=== PATIENT | female | born 1995 | race Caucasian/White ===

== ENCOUNTER 2017-08-09 18:22 | Emergency (ER) | payer SELFPAY ==
[~2017-08-09] VITALS: Ht 162.6 cm; Wt 111.1 kg
[2017-08-09] MEDS ORDERED: KETOROLAC 30 MG/ML VIAL IVP ONE (20:30)
[2017-08-09] MEDS ORDERED: ONDANSETRON 4 MG/2 ML (SDV) Z0FRAN IVP ONE (20:30)
[2017-08-09 20:35] LABS: BILIRUBIN,URINE NEGATIVE (NEGATIVE); CLARITY,URINE SLIGHTLY CLOUDY; COLOR,URINE YELLOW; GLUCOSE, URINE (UA) NEGATIVE (NEGATIVE); KETONES,URINE NEGATIVE (NEGATIVE); LEUKOCYTE ESTERASE ,URINE NEGATIVE (NEGATIVE); NITRITE,URINE NEGATIVE (NEGATIVE); PH,URINE 5 (5-9); PROTEIN,URINE NEGATIVE (NEGATIVE); UROBILINOGEN,URINE NORMAL (NORMAL)
--- NOTE | 2017-08-09 20:36 | ED Abdominal Pain ---
General Chief Complaint: Abdominal/GI Problems Stated Complaint: LOWER PELVIC PAIN,NASUEA Nursing Triage Note: PT PRESENTS TO ER WITH COMPLAINT OF PELVIC PAIN. STATES IT IS A SHARP BURNING PAIN. ALSO COMPLAINING OF NAUSEA. STATES LMP 07/23/17. Sepsis Screen: No Definite Risk Source of Information: Patient Exam Limitations: No Limitations History of Present Illness Date Seen by Provider: Aug 09, 2017 Time Seen by Provider: 20:22 Initial Comments The patient was sensitive to ER by private conveyance with a chief complaint she is having some right lower inguinal abdominal pain. She has had a history of a 3 years ago. She is not had her appendix or gallbladder out. She' s having no fevers chills but she is having some nausea without vomiting. This pain started sometime yesterday has been constant and progressively getting worse. Moving or walking makes it worse. Having a bowel movement or urinating does not seem to affect it. She's not having any constipation or diarrhea. She denies any dysuria or discharge. She is not sexually active. She does not use any control. She's not noticing any rash or skin changes. Last menstrual period was July 23 for about one day. She says it's unusual for her; she is normally regular every month. She has used Motrin which did not help much with her pain. She has used heat and ice which she says made her pain worse. She denies a history of kidney stones. Allergies and Home Medications Allergies Coded Allergies: Influenza Virus Vaccines (Verified Allergy, Unknown, 08/09/17) Home Medications No Active Prescriptions or Reported Meds Patient Home Medication List Home Medication List Reviewed: Yes Review of Systems Constitutional: No chills, No diaphoresis, No fever, No malaise EENTM: No Blurred Vision, No Double Vision Respiratory: Denies Cough, Denies Shortness of Air Cardiovascular: Denies Chest Pain, Denies Palpitations, Denies Syncope Gastrointestinal: Denies Abdomen Distended; Abdominal Pain; Denies Constipated , Denies Diarrhea; Nausea Genitourinary: Denies Burning, Denies Discharge Musculoskeletal: No back pain, No joint pain Skin: No pruritus, No rash Past Qclgixx-Gqbjos-Dcrpiu Hx Patient Social History Alcohol Use: Denies Use Recreational Drug Use: No Smoking Status: Never a Smoker Recent Foreign Travel: No Contact w/Someone Who Travel: No Recent Infectious Disease Expo: No Recent Hopitalizations: No Immunizations Up To Date Tetanus Booster (TDap): Unknown PED Vaccines UTD: Yes Seasonal Allergies Seasonal Allergies: No Past Medical History Surgeries: Yes Section Respiratory: No Cardiac: No Neurological: No Genitourinary: No Gastrointestinal: No Musculoskeletal: No Endocrine: No HEENT: No Cancer: No Psychosocial: No Integumentary: No Blood Disorders: No Physical Exam Vital Signs Vital Signs - First Documented 08/09/17 19:42 Temp 98.1 Pulse 81 Resp 18 B/P (MAP) 137/100 (112) Pulse Ox 96 O2 Delivery Room Air Capillary Refill : Less Than 3 Seconds General Appearance: WD/WN, mild distress HEENT: PERRL/EOMI, TMs normal, pharynx normal Neck: full range of motion, normal inspection Respiratory: lungs clear, normal breath sounds, no respiratory distress, no accessory muscle use Cardiovascular: normal peripheral pulses, regular rate, rhythm Peripheral Pulses: 2+ Radial Pulses (R), 2+ Radial Pulses (L) Gastrointestinal: soft, no organomegaly, abnormal bowel sounds (hypoactive); No rebound; tenderness (right lower quadrant), other (negative for psoas, Rovsing or other mesenteric signs) Extremities: no pedal edema, no calf tenderness, normal capillary refill Back: normal inspection, no CVA tenderness Neurologic/Psychiatric: alert, normal mood/affect, oriented x 3 Skin: damp, other (odor of yeast in the pannus) Progress/Results/Core Measures Results/Orders Lab Results Laboratory Tests Test 08/09/17 19:40 08/09/17 20:40 Range/Units Urine Color YELLOW Urine Clarity SLIGHTLY CLOUDY Urine pH 5 5-9 Urine Specific [place] 1.025 H 1.016-1.022 Urine Protein NEGATIVE NEGATIVE Urine Glucose (UA) NEGATIVE NEGATIVE Urine Ketones NEGATIVE NEGATIVE Urine Nitrite NEGATIVE NEGATIVE Urine Bilirubin NEGATIVE NEGATIVE Urine Urobilinogen NORMAL NORMAL MG/DL Urine Leukocyte Esterase NEGATIVE NEGATIVE Urine RBC (Auto) NEGATIVE NEGATIVE Urine RBC NONE /HPF Urine WBC NONE /HPF Urine Squamous Epithelial Cells 10-25 H /HPF Urine Crystals NONE /LPF Urine Bacteria NONE /HPF Urine Casts NONE /LPF Urine Mucus MODERATE H /LPF Urine Culture Indicated NO Urine Test NEGATIVE NEGATIVE Urine Opiates Screen NEGATIVE NEGATIVE Urine Oxycodone Screen NEGATIVE NEGATIVE Urine Methadone Screen NEGATIVE NEGATIVE Urine Propoxyphene Screen NEGATIVE NEGATIVE Urine Barbiturates Screen NEGATIVE NEGATIVE Ur Tricyclic Antidepressants Screen NEGATIVE NEGATIVE Urine Phencyclidine Screen NEGATIVE NEGATIVE Urine Amphetamines Screen NEGATIVE NEGATIVE Urine Methamphetamines Screen NEGATIVE NEGATIVE Urine Benzodiazepines Screen NEGATIVE NEGATIVE Urine Cocaine Screen NEGATIVE NEGATIVE Urine Cannabinoids Screen NEGATIVE NEGATIVE White Blood Count 6.6 4.3-11.0 10^3/uL Red Blood Count 4.47 4.35-5.85 10^6/uL Hemoglobin 12.9 11.5-16.0 G/DL Hematocrit 38 35-52 % Mean Corpuscular Volume 84 80-99 FL Mean Corpuscular Hemoglobin 29 25-34 PG Mean Corpuscular Hemoglobin Concent 34 32-36 G/DL Red Cell Distribution Width 13.2 10.0-14.5 % Platelet Count 215 130-400 10^3/uL Mean Platelet Volume 10.5 H 7.4-10.4 FL Neutrophils (%) (Auto) 59 42-75 % Lymphocytes (%) (Auto) 27 12-44 % Monocytes (%) (Auto) 10 0-12 % Eosinophils (%) (Auto) 5 0-10 % Basophils (%) (Auto) 0 0-10 % Neutrophils # (Auto) 3.9 1.8-7.8 X 10^3 Lymphocytes # (Auto) 1.8 1.0-4.0 X 10^3 Monocytes # (Auto) 0.6 0.0-1.0 X 10^3 Eosinophils # (Auto) 0.3 0.0-0.3 10^3/uL Basophils # (Auto) 0.0 0.0-0.1 10^3/uL Sodium Level 140 135-145 MMOL/L Potassium Level 3.9 3.6-5.0 MMOL/L Chloride Level 110 H 98-107 MMOL/L Carbon Dioxide Level 20 L 21-32 MMOL/L Anion Gap 10 5-14 MMOL/L Blood Urea Nitrogen 9 7-18 MG/DL Creatinine 0.68 0.60-1.30 MG/DL Estimat Glomerular Filtration Rate > 60 BUN/Creatinine Ratio 13 Glucose Level 90 70-105 MG/DL Calcium Level 9.2 8.5-10.1 MG/DL Total Bilirubin 0.4 0.1-1.0 MG/DL Aspartate Amino Transf (AST/SGOT) 18 5-34 U/L Alanine Aminotransferase (ALT/SGPT) 21 0-55 U/L Alkaline Phosphatase 55 40-136 U/L Total Protein 6.7 6.4-8.2 GM/DL Albumin 4.1 3.2-4.5 GM/DL My Orders Orders - CHIQUI LAROSE Cbc With Automated Diff (08/09/17 20:28) Comprehensive Metabolic Panel (08/09/17 20:28) Drug Screen Stat (Urine) (08/09/17 20:28) Hcg,Qualitative Urine (08/09/17 20:28) Ua Culture If Indicated (08/09/17 20:28) Saline Lock/Iv-Start (08/09/17 20:28) Ketorolac Injection (Toradol Injection) (08/09/17 20:30) Ondansetron Injection (Zofran Injectio (08/09/17 20:30) Ct Abd/Pelv W (Appendicitis) (08/09/17 21:18) Saline Lock/Iv-Start (08/09/17 21:18) Ns Iv 1000 Ml (Sodium Chloride 0.9%) (08/09/17 21:18) Medications Given in ED Current Medications Medications Dose Ordered Sig/Gabino Route Start Time Stop Time Status Last Admin Dose Admin Ketorolac Tromethamine 30 mg ONCE ONCE IVP 08/09/17 20:30 08/09/17 20:31 DC 08/09/17 20:35 30 MG Ondansetron HCl 4 mg ONCE ONCE IVP 08/09/17 20:30 08/09/17 20:31 DC 08/09/17 20:35 4 MG Vital Signs/I&O 08/09/17 19:42 Temp 98.1 Pulse 81 Resp 18 B/P (MAP) 137/100 (112) Pulse Ox 96 O2 Delivery Room Air Blood Pressure Mean: 112 Urine -Bedside: Negative Progress Progress Note #1: Time: 20:36 Progress Note We'll do some labs and urine if there is blood in the urine will think about kidney stones although she is having no CVA tenderness. If she is having a white count recommend think about infective things such as appendicitis. Mittelschmerz also comes to mind since it is one-sided 2 weeks after her last menstrual period. We'll give her some NSAIDs and Zofran for her symptoms. Progress Note #2: Time: 21:18 Progress Note The patient's nausea is gone and her pain is marginally improved. She is does not have any primary care follow-up with and we discussed risks benefits and alternatives to doing imaging versus trial of outpatient management and she would prefer to do the imaging. Progress Note #3: Time: 22:01 Progress Note Patient's pain is under pretty good control this point. I a discussed the likelihood of abdi being her diagnosis and will provide her a work note for tomorrow if she needs it. Diagnostic Imaging Diagonstic Imaging: CT Plain Films/CT/US/NM/MRI: abdomen, pelvis (c/c) Comments VIA [facility]. [place], [place] NAME: SALTY DEY MED REC#: [id number] PT STATUS: REG ER : 1995 PHYSICIAN: CHIQUI LAROSE MD ADMIT DATE: 08/09/17/ER Draft Date of Exam:08/09/17 CT ABD/PELV W (APPENDICITIS) PROCEDURE: CT abdomen and pelvis with contrast, rule out appendicitis. TECHNIQUE: Multiple contiguous axial images were obtained through the abdomen and pelvis after the administration of intravenous contrast. INDICATION: Low pelvic pain. FINDINGS: The lung bases are clear. There does appear to be mild hepatomegaly as well as splenomegaly. No evidence of portal hypertension. The gallbladder is contracted. Gallbladder wall does appear mildly thickened though this is probably due to contracted state. There is no pericholecystic edema. There are no gallstones. The bile ducts are not dilated. The pancreas is normal. Adrenal glands are normal. The kidneys appear normal. There is normal enhancement of the abdominal organs and vessels. Stomach is not distended. Small bowel is not dilated. The colon shows normal stool and gas pattern. The appendix is visualized with no evidence of appendicolith or inflammatory changes. No evidence of diverticulitis. The uterus is not enlarged. Right ovary is mildly enlarged measuring approximately 4.7 x 3 cm. There is no free fluid in the pelvis. No bony abnormalities. No evidence of a ventral hernia. IMPRESSION: 1. The appendix is visualized and appears normal. 2. The gallbladder is contracted with mild thickening of the gallbladder wall as described. 3. There is hepatosplenomegaly without evidence of portal hypertension. Dictated on workstation # [id number] Dict: 08/09/17 2139 Trans: 08/09/17 2148 [facility] [id number] Interpreted by: YOSELIN WAITE MD Electronically signed by: Reviewed: Reviewed by Me Departure Impression Primary Impression: Mittelschmerz phenomenon Disposition: 01 HOME, SELF-CARE Condition: Stable Departure-Patient Inst. Decision time for Depature: 22:02 Referrals: NO,LOCAL PHYSICIAN (PCP/Family) Primary Care Physician Patient Instructions: Painful Ovulation (DC) Add. Discharge Instructions: 800 mg of ibuprofen every 8 hours or 2 capsules of Naprosyn twice a day as needed for pain. You can also use Tylenol 1000 mg every 8 hours and heat. Drink plenty of fluids and stay active. All discharge instructions reviewed with patient and/or family. Voiced understanding. Scripts No Active Prescriptions or Reported Meds Work/School Note: Work Release Form Date Seen in the Emergency Department: Aug 09, 2017 Return to Work: Aug 11, 2017 Restrictions: No Restrictions CHIQUI LAROSE Aug 09, 2017 20:36
[2017-08-09 20:40] LABS: HCG,QUALITATIVE URINE NEGATIVE (NEGATIVE)
[2017-08-09 20:48] LABS: BASOPHILS % (AUTO) 0 % (0-10); EOSINOPHILS # (AUTO) 0.3 10^3/uL (0.0-0.3); EOSINOPHILS % (AUTO) 5 % (0-10); HEMATOCRIT 38 % (35-52); HEMOGLOBIN 12.9 G/DL (11.5-16.0); LYMPHOCYTES # (AUTO) 1.8 X 10^3 (1.0-4.0); LYMPHOCYTES % (AUTO) 27 % (12-44); MEAN CORPUSCULAR HEMOGLOBIN 29 PG (25-34); MEAN CORPUSCULAR HGB CONC 34 G/DL (32-36); MEAN CORPUSCULAR VOLUME 84 FL (80-99); MEAN PLATELET VOLUME 10.5 FL (7.4-10.4); MONOCYTES # (AUTO) 0.6 X 10^3 (0.0-1.0); MONOCYTES % (AUTO) 10 % (0-12); NEUTROPHILS # (AUTO) 3.9 X 10^3 (1.8-7.8); NEUTROPHILS % (AUTO) 59 % (42-75); PLATELET COUNT 215 10^3/uL (130-400); RED BLOOD COUNT 4.47 10^6/uL (4.35-5.85); RED CELL DISTRIBUTION WIDTH 13.2 % (10.0-14.5); WHITE BLOOD COUNT 6.6 10^3/uL (4.3-11.0)
[2017-08-09 20:50] LABS: AMPHETAMINE SCREEN, URINE NEGATIVE (NEGATIVE); BARBITURATE SCREEN URINE NEGATIVE (NEGATIVE); BENZODIAZEPINES SCREEN URINE NEGATIVE (NEGATIVE); CANNABINOID SCREEN, URINE NEGATIVE (NEGATIVE); COCAINE SCREEN URINE NEGATIVE (NEGATIVE); METHADONE STAT NEGATIVE (NEGATIVE); METHAMPHETAMINE SCREEN URINE S NEGATIVE (NEGATIVE); OPIATE SCREEN URINE NEGATIVE (NEGATIVE); OXYCODONE STAT NEGATIVE (NEGATIVE); PROPOXYPHENE STAT NEGATIVE (NEGATIVE); TRICYCLIC ANTIDEPRESSANTS SCRE NEGATIVE (NEGATIVE)
[2017-08-09 21:12] LABS: ALANINE AMINOTRANSFERASE 21 U/L (0-55); ALBUMIN 4.1 GM/DL (3.2-4.5); ALKALINE PHOSPHATASE 55 U/L (40-136); BILIRUBIN,TOTAL 0.4 MG/DL (0.1-1.0); BUN/CREATININE RATIO 13; CALCIUM 9.2 MG/DL (8.5-10.1); CARBON DIOXIDE 20 MMOL/L (21-32); CHLORIDE 110 MMOL/L (98-107); CREATININE SERUM 0.68 MG/DL (0.60-1.30); GFR ESTIMATED > 60; GLUCOSE 90 MG/DL (70-105); POTASSIUM 3.9 MMOL/L (3.6-5.0); SODIUM 140 MMOL/L (135-145); TOTAL PROTEIN 6.7 GM/DL (6.4-8.2)
[2017-08-09] MEDS ORDERED: NS IV 1000 ML 1,000 ML IV SCH (21:18)
--- NOTE | 2017-08-09 21:49 | Diagnostic Imaging Report ---
PROCEDURE: CT abdomen and pelvis with contrast, rule out appendicitis. TECHNIQUE: Multiple contiguous axial images were obtained through the abdomen and pelvis after the administration of intravenous contrast. INDICATION: Low pelvic pain. FINDINGS: The lung bases are clear. There does appear to be mild hepatomegaly as well as splenomegaly. No evidence of portal hypertension. The gallbladder is contracted. Gallbladder wall does appear mildly thickened though this is probably due to contracted state. There is no pericholecystic edema. There are no gallstones. The bile ducts are not dilated. The pancreas is normal. Adrenal glands are normal. The kidneys appear normal. There is normal enhancement of the abdominal organs and vessels. Stomach is not distended. Small bowel is not dilated. The colon shows normal stool and gas pattern. The appendix is visualized with no evidence of appendicolith or inflammatory changes. No evidence of diverticulitis. The uterus is not enlarged. Right ovary is mildly enlarged measuring approximately 4.7 x 3 cm. There is no free fluid in the pelvis. No bony abnormalities. No evidence of a ventral hernia. IMPRESSION: 1. The appendix is visualized and appears normal. 2. The gallbladder is contracted with mild thickening of the gallbladder wall as described. 3. There is hepatosplenomegaly without evidence of portal hypertension. Dictated by: Dictated on workstation # [id number]
[2017-08-09 22:20] VITALS: BP 137/100
== END 2017-08-09 22:20 | disposition home or self-care (01) ==
LOC: ER 18:25
DX: N94.0 Mittelschmerz (principal); Z87.59 Personal history of other complications of pregnancy, childbirth and the puerperium
CPT/HCPCS: 36415; 74177; 80053; 80306; 81000; 84703; 85025; 96361; 96374; 96375

== ENCOUNTER 2018-11-13 20:25 | Emergency (ER) | payer BC, OTHER ==
[~2018-11-13] VITALS: Ht 162.6 cm; Wt 99.3 kg
[2018-11-13] MEDS ORDERED: SULF-222 (20:46)
[2018-11-13] MEDS ORDERED: LEVO50TA6 PO (20:46)
[2018-11-13] MEDS ORDERED: KETOROLAC 30 MG/ML VIAL IVP STA (21:19)
[2018-11-13] MEDS ORDERED: fentaNYL INJECTION 100 MCG/2 ML AMP IVP STA (21:19)
[2018-11-13] MEDS ORDERED: NS IV 1000 ML 1,000 ML IV STA (21:19)
[2018-11-13 21:29] LABS: BASOPHILS % (AUTO) 0 % (0-10); EOSINOPHILS # (AUTO) 0.2 10^3/uL (0.0-0.3); EOSINOPHILS % (AUTO) 3 % (0-10); HEMATOCRIT 43 % (35-52); HEMOGLOBIN 14.5 G/DL (11.5-16.0); LYMPHOCYTES # (AUTO) 1.5 X 10^3 (1.0-4.0); LYMPHOCYTES % (AUTO) 22 % (12-44); MEAN CORPUSCULAR HEMOGLOBIN 27 PG (25-34); MEAN CORPUSCULAR HGB CONC 34 G/DL (32-36); MEAN CORPUSCULAR VOLUME 81 FL (80-99); MEAN PLATELET VOLUME 10.9 FL (7.4-10.4); MONOCYTES # (AUTO) 0.5 X 10^3 (0.0-1.0); MONOCYTES % (AUTO) 8 % (0-12); NEUTROPHILS # (AUTO) 4.7 X 10^3 (1.8-7.8); NEUTROPHILS % (AUTO) 68 % (42-75); PLATELET COUNT 234 10^3/uL (130-400); RED CELL DISTRIBUTION WIDTH 13.7 % (10.0-14.5); WHITE BLOOD COUNT 6.9 10^3/uL (4.3-11.0)
[2018-11-13 21:29] LABS: BILIRUBIN,URINE NEGATIVE (NEGATIVE); CLARITY,URINE CLEAR; COLOR,URINE YELLOW; GLUCOSE, URINE (UA) NEGATIVE (NEGATIVE); KETONES,URINE NEGATIVE (NEGATIVE); LEUKOCYTE ESTERASE ,URINE NEGATIVE (NEGATIVE); NITRITE,URINE NEGATIVE (NEGATIVE); PH,URINE 6 (5-9); PROTEIN,URINE 1+ (NEGATIVE); UROBILINOGEN,URINE NORMAL (NORMAL)
[2018-11-13] MEDS ORDERED: ONDANSETRON 4 MG/2 ML (SDV) Z0FRAN IVP ONE (21:30)
[2018-11-13 21:40] LABS: ALANINE AMINOTRANSFERASE 23 U/L (0-55); ALBUMIN 4.8 GM/DL (3.2-4.5); ALKALINE PHOSPHATASE 92 U/L (40-136); BILIRUBIN,TOTAL 0.9 MG/DL (0.1-1.0); BUN/CREATININE RATIO 8; CALCIUM 9.7 MG/DL (8.5-10.1); CARBON DIOXIDE 22 MMOL/L (21-32); CHLORIDE 106 MMOL/L (98-107); CREATININE SERUM 0.84 MG/DL (0.60-1.30); GFR ESTIMATED > 60; GLUCOSE 89 MG/DL (70-105); POTASSIUM 3.5 MMOL/L (3.6-5.0); SODIUM 139 MMOL/L (135-145); TOTAL PROTEIN 7.8 GM/DL (6.4-8.2)
[2018-11-13 21:41] LABS: BACTERIA,URINE LARGE /HPF; RBC,URINE 0-2 /HPF
--- NOTE | 2018-11-13 21:45 | ED Abdominal Pain ---
General Chief Complaint: Abdominal/GI Problems Stated Complaint: SEVERE STOMACH PAIN AND BURNING Nursing Triage Note: constant/variable right abdominal sharp/burning pain, bloating, constipation, urinary frequency Sepsis Screen: No Definite Risk Source of Information: Patient Exam Limitations: No Limitations History of Present Illness Date Seen by Provider: Nov 13, 2018 Time Seen by Provider: 21:12 Initial Comments Here with complaint of persistent right-sided abdominal pain that is sharp and burning. Worse with movement and sometimes a little better with rest. Has been worsening over the last week to 10 days. She was seen at the end of October at another facility and had CT scan done and were she was noted to have a 3 cm left ovarian cyst on her right ovarian cyst/mass. She had follow-up ultrasound that did not note the mass in follow-up with [employer] [facility] in [facility] and they did not have a lot of information or help for her per the patient. He presents tonight for continuation of pain and wanting further evaluation. Denies vaginal bleeding but states she may have a little bit of discharge. That has been going on since her miscarriage on August 05 and ultimate D&C in early August. She has not been sexually active since several weeks prior to the miscarriage. Pain radiates to her back. Has caused her to double over in pain several times today. Timing/Duration: 1 Week, Changing Over Time, Getting Worse Severity/Quality: Moderate, Severe, Burning, Sharp, Stabbing Location: RLQ Radiation: LLQ, Back Activities at Onset: None Modifying Factors: Worsens With Movement; Improves With Resting; Worsens With Urinating Associated Symptoms: Back Pain; No Fever/Chills; Nausea/Vomiting; No Shortness of Air, No Swelling/Mass in Abdomen, No Weakness Allergies and Home Medications Allergies Coded Allergies: Influenza Virus Vaccines (Verified Allergy, Unknown, 08/09/17) Patient Home Medication List Home Medication List Reviewed: Yes Review of Systems Review of Systems Constitutional: see HPI; No chills, No fever EENTM: No Symptoms Reported Respiratory: No Symptoms Reported Cardiovascular: No Symptoms Reported Gastrointestinal: See HPI, Abdominal Pain; Denies Diarrhea; Nausea; Denies Vomiting Genitourinary: No Symptoms Reported Musculoskeletal: no symptoms reported Skin: no symptoms reported Psychiatric/Neurological: Anxiety; Denies Weakness Endocrine: No Symptoms Reported All Other Systems Reviewed Negative Unless Noted: Yes Past Vzzkfum-Szojao-Dxsqal Hx Past Med/Social Hx: Reviewed Nursing Past Med/Soc Hx Patient Social History Alcohol Use: Denies Use Recreational Drug Use: No Smoking Status: Never a Smoker Recent Foreign Travel: No Contact w/Someone Who Travel: No Recent Infectious Disease Expo: No Recent Hopitalizations: No Physical Abuse: No Sexual Abuse: No Mistreated: No Fear: No Immunizations Up To Date Tetanus Booster (TDap): Unknown PED Vaccines UTD: Yes Seasonal Allergies Seasonal Allergies: No Past Medical History Surgeries: Yes (d&c) Section Respiratory: No Cardiac: No Neurological: No : No Female Reproductive Disorders: Ovarian Cyst Genitourinary: No Gastrointestinal: No Musculoskeletal: No Endocrine: Yes Hypothyroidsim HEENT: No Cancer: No Psychosocial: No Integumentary: No Blood Disorders: No Family Medical History Reviewed Nursing Family Hx Physical Exam Vital Signs Vital Signs - First Documented 11/13/18 20:35 Temp 98.5 Pulse 122 Resp 20 B/P (MAP) 145/113 (124) Pulse Ox 99 O2 Delivery Room Air Capillary Refill : Less Than 3 Seconds Height/Weight/BMI Height: 5'4.00" Weight: 219lbs. oz. 99.240657ou; BMI Method:Stated General Appearance: WD/WN, no apparent distress HEENT: PERRL/EOMI, pharynx normal Neck: full range of motion, supple Respiratory: lungs clear, normal breath sounds Cardiovascular: regular rate, rhythm, no murmur Gastrointestinal: soft, guarding (right lower quadrant); No rebound; tenderness Extremities: non-tender, normal inspection Back: normal inspection, no CVA tenderness, no vertebral tenderness Neurologic/Psychiatric: alert, oriented x 3 Skin: normal color, warm/dry Progress/Results/Core Measures Results/Orders Lab Results Laboratory Tests Test 11/13/18 20:40 11/13/18 20:45 Range/Units White Blood Count 6.9 4.3-11.0 10^3/uL Red Blood Count 5.34 4.35-5.85 10^6/uL Hemoglobin 14.5 11.5-16.0 G/DL Hematocrit 43 35-52 % Mean Corpuscular Volume 81 80-99 FL Mean Corpuscular Hemoglobin 27 25-34 PG Mean Corpuscular Hemoglobin Concent 34 32-36 G/DL Red Cell Distribution Width 13.7 10.0-14.5 % Platelet Count 234 130-400 10^3/uL Mean Platelet Volume 10.9 H 7.4-10.4 FL Neutrophils (%) (Auto) 68 42-75 % Lymphocytes (%) (Auto) 22 12-44 % Monocytes (%) (Auto) 8 0-12 % Eosinophils (%) (Auto) 3 0-10 % Basophils (%) (Auto) 0 0-10 % Neutrophils # (Auto) 4.7 1.8-7.8 X 10^3 Lymphocytes # (Auto) 1.5 1.0-4.0 X 10^3 Monocytes # (Auto) 0.5 0.0-1.0 X 10^3 Eosinophils # (Auto) 0.2 0.0-0.3 10^3/uL Basophils # (Auto) 0.0 0.0-0.1 10^3/uL Sodium Level 139 135-145 MMOL/L Potassium Level 3.5 L 3.6-5.0 MMOL/L Chloride Level 106 98-107 MMOL/L Carbon Dioxide Level 22 21-32 MMOL/L Anion Gap 11 5-14 MMOL/L Blood Urea Nitrogen 7 7-18 MG/DL Creatinine 0.84 0.60-1.30 MG/DL Estimat Glomerular Filtration Rate > 60 BUN/Creatinine Ratio 8 Glucose Level 89 70-105 MG/DL Calcium Level 9.7 8.5-10.1 MG/DL Corrected Calcium 8.5-10.1 MG/DL Total Bilirubin 0.9 0.1-1.0 MG/DL Aspartate Amino Transf (AST/SGOT) 19 5-34 U/L Alanine Aminotransferase (ALT/SGPT) 23 0-55 U/L Alkaline Phosphatase 92 40-136 U/L C-Reactive Protein High Sensitivity 0.03 0.00-0.50 MG/DL Total Protein 7.8 6.4-8.2 GM/DL Albumin 4.8 H 3.2-4.5 GM/DL Urine Color YELLOW Urine Clarity CLEAR Urine pH 6 5-9 Urine Specific [place] 1.015 L 1.016-1.022 Urine Protein 1+ H NEGATIVE Urine Glucose (UA) NEGATIVE NEGATIVE Urine Ketones NEGATIVE NEGATIVE Urine Nitrite NEGATIVE NEGATIVE Urine Bilirubin NEGATIVE NEGATIVE Urine Urobilinogen NORMAL NORMAL MG/DL Urine Leukocyte Esterase NEGATIVE NEGATIVE Urine RBC (Auto) 1+ H NEGATIVE Urine RBC 0-2 /HPF Urine WBC NONE /HPF Urine Squamous Epithelial Cells 10-25 H /HPF Urine Crystals NONE /LPF Urine Bacteria LARGE H /HPF Urine Casts NONE /LPF Urine Mucus LARGE H /LPF Urine Culture Indicated YES Urine Test NEGATIVE NEGATIVE My Orders Orders - BENJAMIN BENNETT MD Ed Iv/Invasive Line Start (11/13/18 21:19) Cbc With Automated Diff (11/13/18 21:19) Comprehensive Metabolic Panel (11/13/18 21:19) Hs C Reactive Protein (11/13/18 21:19) Ua Culture If Indicated (11/13/18 21:19) Ondansetron Injection (Zofran Injectio (11/13/18 21:30) Ns Iv 1000 Ml (Sodium Chloride 0.9%) (11/13/18 21:19) Ed Iv/Invasive Line Start (11/13/18 21:19) Fentanyl Injection (Sublimaze Injection (11/13/18 21:19) Ketorolac Injection (Toradol Injection) (11/13/18 21:19) Hcg,Qualitative Urine (11/13/18 21:24) Urine Culture (11/13/18 20:45) Ct Abdomen/Pelvis W (11/13/18 21:59) Medications Given in ED Current Medications Medications Dose Ordered Sig/Gabino Route Start Time Stop Time Status Last Admin Dose Admin Ondansetron HCl 4 mg ONCE ONCE IVP 11/13/18 21:30 11/13/18 21:31 DC 11/13/18 21:33 4 MG Vital Signs/I&O 11/13/18 11/13/18 20:35 22:15 Temp 98.5 Pulse 122 72 Resp 20 16 B/P (MAP) 145/113 (124) 118/64 (82) Pulse Ox 99 100 O2 Delivery Room Air Room Air Blood Pressure Mean: 124 Progress Progress Note : Progress Note Seen and evaluated. IV, labs, UA, ECG, normal saline 1 L bolus ordered. Zofran 4 mg IV, fentanyl 50 g IV and Toradol 30 mg IV ordered. Monitor patient. 2355: CT results noted. I have reexamined the patient and she is tender exactly over the area of induration in the lateral aspect of the scar where the soft tissue density is noted on CT scan. This will need further evaluation. Question local infection versus other etiology. I recommended that she follow up with surgeon of her choice. I did discuss with her about the on-call surgeon which is Dr. Higgins. She will call his office on Thursday. I will send a copy of the chart to his office as well. She also has the ovarian cyst which may be part of the pain as well. We will send prescription of nausea medicine and give short prescription of pain medicine. She does need further evaluation regarding this density in the abdominal wall. Discharged home with return precautions. Patient verbalize understanding instructions and agreement with plan. Diagnostic Imaging Diagonstic Imaging: CT Plain Films/CT/US/NM/MRI: abdomen, pelvis Comments 3 cm involuting right ovarian cyst. Urinary bladder wall thickening, lack of distention versus cystitis. 2.7 cm focus of fat induration overlying the right word lower rectus sheath. Question exuberant scar from prior . Correlate with history. Solid mass is not excluded. Departure Impression Primary Impression: Ovarian cyst Qualified Codes: N83.201 - Unspecified ovarian cyst, right side Additional Impression: soft tissue density right lower abdomen Disposition: HOME, SELF-CARE Condition: Improved Departure-Patient Inst. Decision time for Depature: 00:02 Referrals: YOSELIN HIGGINS DO NO,LOCAL PHYSICIAN (PCP) Primary Care Physician Patient Instructions: Ovarian Cyst (DC), Acute Abdomen (Belly Pain), Adult (DC) Add. Discharge Instructions: All discharge instructions reviewed with patient and/or family. Voiced understanding. You have a soft tissue density in the area of the scar on the right s munira. This needs further evaluation from a surgeon. You also have right ovarian cyst that should be followed as well with your academic affairs director as needed. You should call Dr. Higgins's office on Thursday morning for appointment this week. Return for worse pain, fever, vomiting, weakness, breathing problems or other concerns as needed. Take medications as directed. Scripts Ondansetron (Ondansetron Odt) 4 Mg Tab.rapdis 4 MG PO Q6H PRN for NAUSEA/VOMITING, #12 TAB 0 Refills Prov: BENJAMIN BENNETT MD 11/14/18 Hydrocodone Bit/Acetaminophen (Hydrocodone/Acetaminophen 5/325mg Tablet) 1 Tab Tab 1 EACH PO Q6H PRN for PAIN-MODERATE MDD 10 for 3 Days, #6 TAB 0 Refills Prov: BENJAMIN BENNETT MD 11/14/18 Copy Copies To 1: YOSELIN HIGGINS TIMOTHY D MD Nov 13, 2018 21:44
[2018-11-13 22:15] VITALS: BP 118/64
[2018-11-14] MEDS ORDERED: RX-HYDROCODONE/APAP 5/325 MG #4 TAB PK PO PRN
[2018-11-14] MEDS ORDERED: ACHD5005 PO (00:04)
[2018-11-14] MEDS ORDERED: ONDA4TAB11 PO (00:05)
[2018-11-14 00:08] VITALS: BP 111/68
--- NOTE | 2018-11-14 06:50 | Diagnostic Imaging Report ---
PROCEDURE: CT abdomen and pelvis with contrast. TECHNIQUE: Multiple contiguous axial images were obtained through the abdomen and pelvis after administration of intravenous contrast. Auto Exposure Controls were utilized during the CT exam to meet ALARA standards for radiation dose reduction. INDICATION: Lower abdominal pain Comparison is made to the examination of 08/09/2017. There is mild low-density in the liver likely due to fatty infiltration. No gallbladder, pancreatic or splenic abnormalities identified. The stomach is distended with particulate matter. There is no evidence of adrenal gland or renal abnormality. No free fluid is seen within the abdomen or pelvis. The urinary bladder reveals mild mural thickening. Note is made of an approximately 2.2 cm cyst in the right ovary. Note is made of an approximately 2.4 x 1.5 x 4.1 cm nodular focus just superficial to the lower right rectus abdominis musculature in the upper pelvic region. This was present on the previous study but appears slightly increased in prominence on the current study. Otherwise, no significant change. IMPRESSION: A 2.2 cm right ovarian cyst. Mural thickening in the bladder may represent cystitis and correlation with urinalysis would be useful. There is nodular focus in the right anterior abdominal wall which was present on study of 08/09/2017 but is of greater conspicuity on the current exam. This could represent scarring from previous surgery although clinical correlation with palpation at this site would be useful. Dictated by: Dictated on workstation # [id number]
== END 2018-11-14 00:09 | disposition home or self-care (01) ==
LOC: EDUNIT# 20:25 → ER 20:28
DX: N83.201 Unspecified ovarian cyst, right side (principal); M79.9 Soft tissue disorder, unspecified; F41.9 Anxiety disorder, unspecified; E03.9 Hypothyroidism, unspecified; Z88.7 Allergy status to serum and vaccine
CPT/HCPCS: 36415; 74177; 80053; 81000; 84703; 85025; 86141; 87088; 96361; 96374; 96375

== ENCOUNTER 2018-11-16 11:46 | Outpatient (CLI) | payer BC, OTHER ==
[~2018-11-16] VITALS: Ht 162.6 cm; Wt 99.3 kg
[~2018-11-16 11:46] MED LIST: ACHD5005 PO; LEVO50TA6 PO; ONDA4TAB11 PO; SULF-222
[2018-11-16] MEDS ORDERED: PHEN37.53 PO (12:14)
== END 2018-11-16 12:21 | disposition home or self-care (01) ==
LOC: PREOP 11:46
PROVIDERS: ATTEND Surgery
DX: Z01.818 Encounter for other preprocedural examination (principal)

== ENCOUNTER 2018-11-17 10:20 | Day surgery (SDC) | payer BC, OTHER ==
[~2018-11-17] VITALS: Ht 162.6 cm; Wt 99.3 kg
[2018-11-17] VITALS (15 sets, daily range): BP systolic 123–156; BP diastolic 67–107
[~2018-11-17 10:20] MED LIST changes: +PHEN37.53 PO
[2018-11-17] MEDS ORDERED: BUP/EPI 0.25% 1:200,000 (MARCAINE) 10 ML VIAL IJ ONE (10:54)
[2018-11-17] MEDS ORDERED: ceFAZolin 2 GM/50 ML NS 50 ML IV ONE (11:00)
[2018-11-17] MEDS ORDERED: LIDOCAINE PF 2% 5 ML (XYLOCAINE) VIAL ONE (11:27)
[2018-11-17] MEDS ORDERED: fentaNYL INJECTION 100 MCG/2 ML AMP ONE ×2 (11:27→13:32)
[2018-11-17] MEDS ORDERED: proPOfol 200 MG/20 ML (DIPRIVAN) VIAL IV ONE (11:27)
[2018-11-17] MEDS ORDERED: MIDAZOLAM 2 MG/2 ML (VERSED) VIAL ONE (11:27)
[2018-11-17] MEDS ORDERED: DEXAMETHASONE 10 MG/ML (DECADRON) 1 ML VIAL ONE (11:27)
[2018-11-17] MEDS ORDERED: ONDANSETRON 4 MG/2 ML (SDV) Z0FRAN ONE (11:27)
[2018-11-17] MEDS ORDERED: SEVOFLURANE (ULTANE) 15 ML INHAL SOLN ONE ×2 (11:32→12:26)
[2018-11-17] MEDS: LACTATED RINGERS 1,000 ML IV PRN ×2 (11:45→13:07)
[2018-11-17] MEDS ORDERED: HYDROmorphone 2 MG/ML VIAL (DILAUDID) ONE (12:56)
[2018-11-17] MEDS ORDERED: ONDANSETRON 4 MG/2 ML (SDV) Z0FRAN IVP PRN (13:00)
[2018-11-17] MEDS ORDERED: HYDROmorphone 2 MG/ML VIAL (DILAUDID) IV ONE (13:00)
[2018-11-17] MEDS ORDERED: KETOROLAC 30 MG/ML VIAL ONE (13:32)
[2018-11-17] MEDS ORDERED: KETOROLAC 30 MG/ML VIAL IVP ONE (13:43)
[2018-11-17] MEDS ORDERED: fentaNYL INJECTION 100 MCG/2 ML AMP IVP ONE (13:45)
--- NOTE | 2018-11-17 14:15 | NUR ---
TO AMB SURG FROM PAR PER CART. AWAKE, CRYING AND MOANING, STATES "IT REALLY HURTS." PT IS DISTRACTIBLE, STOPS CRYING AND MOANING TO CONVERSE. PO FLUIDS AND CRACKERS PROVIDED. TAPED GAUZE DRESSING D/I OVER RIGHT LOWER ABD SURGICAL SITE. ICE PACK PLACED, PT C/O NOT LIKING ICE PACK/COLD. REINFORCED TO PT NEED FOR COLD THERAPY AT SURGICAL SITE TO CONTROL PAIN AND SWELLING, VERBALIZED UNDERSTANDING.
--- NOTE | 2018-11-17 14:29 | Progress Note-Pre Operative ---
Pre-Operative Progress Note H&P Reviewed The H&P was reviewed, patient examined and no changes noted. Time Seen by Provider: 11:48 Date H&P Reviewed: Nov 17, 2018 Time H&P Reviewed: 11:49 Pre-Operative Diagnosis: RLQ mass YOSELIN SINGH DO Nov 17, 2018 14:29
--- NOTE | 2018-11-17 14:33 | Progress Note-Post Operative ---
Post-Operative Progess Note Surgeon (s)/Channeler Insole (s) Surgeon YOSELIN SINGH DO Channeler Insole: Mariana Sung Pre-Operative Diagnosis RLQ mass Post-Operative Diagnosis same pending path Procedure & Operative Findings Date of Procedure 11/17/18 Procedure Performed/Findings Exc RLQ mass 5.6 cm Anesthesia Type GET Estimated Blood Loss Estimated blood loss (mL): less than 15ml Specimens/Packing Specimens Removed RLQ mass YOSELIN SINGH DO Nov 17, 2018 14:33
--- NOTE | 2018-11-17 14:35 | Discharge Inst-Surgical ---
Discharge Inst-Surgical Depart Medication/Instructions New, Converted or Re-Newed RX: RX Given to Pt/Family Patient Instructions Follow up Appt: Make appointment for 1 week. [phone] Instructions: No strenuous activity. May shower in 24 hours, no tub bath or soaking. Use incentive spirometer at home as directed. No Smoking Skin/Wound Care: May remove bandages in am. You need to leave the Dermabond on incision it will fall off on it's own. Symptoms to Report: Appetite Changes, Extremity Discoloration, Numbness/Tingling, Swelling Increased, Bleeding Excessive, Eyesight Changes, Pain Increased, Urine Color Blanca nge, Constipation(Persistent), Fever over 101 degree F, Pain/Pressure in chest, Urinating Difficulty, Cough Up/Vomit Blood, Heart Beat Irreg/Pounding, Pain/Pressure in jaw, Cramps in feet or legs, Lightheadedness, Pain/Pressure in shoulder, Diarrhea(Persistent), Memory Changes Suddenly, Questions/Concerns, Weight gain consecutive days, Dizziness/Fainting, Nausea/Vomiting, Shortness of Breath, Weight gain over 2 pounds If questions or concerns contact your physician Or seek help at emergency department. Activity Activity as Tolerated: Yes Activity Instructions: Avoid Stress to Incision Driving Instructions: No Driving/Refer to Dr. Huerta Discharge Diet: No Restrictions Diet After 24 Hours: Clear Liquid if Nauseous If Any Problems/Questions/Issu: Contact Your Physician, Go to Emergency Room Skin/Wound Care Infection Signs and Symptoms: Increased Redness, Foul Odor of Wound, Increased Drainage, Skin Itchy or Has a Rash, Increased Swelling, Temperature Above 101 F Bathing Instructions: Shower Stitches/Eitan/Dermabond Dis: YOSELIN Quezada DO Nov 17, 2018 14:35
[2018-11-17] MEDS ORDERED: HYDROcodone/APAP 5 MG/325 MG (LORTAB) TAB ONE (14:42)
--- NOTE | 2018-11-17 14:54 | NUR ---
TAKING PO FLUIDS WITHOUT PROBLEM. NO LONGER CRYING AND MOANING, BUT C/O SURGICAL SITE PAIN RATED 7-8. LORTAB 5/325 MG, ONE TAB, GIVEN PO.
[2018-11-17] MEDS ORDERED: HYDROcodone/APAP 5 MG/325 MG (LORTAB) TAB PO ONE (15:00)
--- NOTE | 2018-11-17 15:05 | NUR ---
C/O NAUSEA. ORDER RECEIVED AND ZOFRAN 4 MG GIVEN IV.
[2018-11-17] MEDS ORDERED: ONDANSETRON 4 MG/2 ML (SDV) Z0FRAN IVP ONE (15:15)
--- NOTE | 2018-11-17 15:50 | NUR ---
HAS BEEN RESTING QUIETLY IN BED, TALKING WITH MOM. CONVERSATIONAL WITH STAFF, ALERT. UP WITH ASSIST TO BR TO VOID, GAIT STEADY, TOLERATED WELL. NO CHANGE IN SITE ASSESSMENT. BACK TO ROOM TO DRESS FOR HOME. DENIES NAUSEA. PAIN RATE 4 WHEN UP AMB.
--- NOTE | 2018-11-18 00:38 | OPERATIVE REPORT ---
DATE OF SERVICE: PREOPERATIVE DIAGNOSES: Right lower quadrant mass, right lower quadrant abdominal pain. POSTOPERATIVE DIAGNOSES: Right lower quadrant mass, right lower quadrant abdominal pain, pending pathology. PROCEDURE: Excision of right lower quadrant mass right on top of the fascia and muscle 5.6 cm incision. SURGEON: Jordon Higgins DO GARMENT TAG STRINGER: MARTÍN James ANESTHESIA: General endotracheal tube. SPECIMEN: Right lower quadrant mass. BLOOD LOSS: Scant. FLUIDS: Per anesthesia. POSTOPERATIVE CONDITION: Stable. INDICATION FOR PROCEDURE: The patient is a 23-year-old female who has severe pain in right lower quadrant and had a CAT scan showed a mass right on top of the fascia and muscle, wanted to get this removed hopefully stop the pain. FINDINGS: The patient had a mass removed. A lot of inflammation that was sent to pathology. PROCEDURE NOTE: After informed consent was obtained, the patient was brought to the operating room, placed on the operating table in supine position. She was sterilely prepped and draped in normal fashion. Local lidocaine was used to infiltrate the skin in the previous scar. I made an incision with #15 blade, carried down through the skin into subcutaneous tissue. I measured this. It was about 5.6 cm, then dissected up towards the mass a little bit, could feel this on CAT scan, it was about 2 x 4 cm, able to grasp this and then start dissecting around with Bovie electrocautery it was right on top of the fascia, able to get all the way around it and under it, leaving the fascia underneath it, then passed this off table and sent to pathology. There was a little bit of bleeding from the abdominal wall and this was closed with a 3-0 Vicryl [id number] suture. The rest of any other small bleeding from the bed of the incision was contained with Bovie electrocautery. Copiously irrigated with normal saline, suctioned this out, looked around, no bleeding and then elected to close the incision, closing the subcutaneous tissue with 3-0 Vicryl, 2 interrupted sutures and closed the skin with 4-0 undyed Monocryl in running subcuticular fashion. Area was cleaned and dried and Dermabond placed as well as dressing. The patient then transferred to recovery room in stable condition. Sponge, instrument and needle count correct at the end of the case. Job ID: [id number] DocumentID: [id number] Dictated Date: 11/17/2018 15:53:19 Scale Tester Date: 11/18/2018 00:36:37 Dictated By: DO MONSE GRANADOS
== END 2018-11-17 16:23 | disposition home or self-care (01) ==
LOC: SDC 10:20
PROVIDERS: ATTEND Surgery
DX: N80.8 Other endometriosis (principal); R19.03 Right lower quadrant abdominal swelling, mass and lump; K21.9 Gastro-esophageal reflux disease without esophagitis; E03.9 Hypothyroidism, unspecified; G43.909 Migraine, unspecified, not intractable, without status migrainosus; I10 Essential (primary) hypertension; F41.9 Anxiety disorder, unspecified; F32.9 Major depressive disorder, single episode, unspecified; Z68.37 Body mass index [BMI] 37.0-37.9, adult; Z79.899 Other long term (current) drug therapy; Z88.7 Allergy status to serum and vaccine; Z80.9 Family history of malignant neoplasm, unspecified; Z83.42 Family history of familial hypercholesterolemia; Z83.3 Family history of diabetes mellitus; Z79.891 Long term (current) use of opiate analgesic
CPT/HCPCS: 84703; 87081